=== PATIENT | female | born 1945 | race Caucasian/White ===

== ENCOUNTER 2017-04-18 09:42 | Outpatient (CLI) | payer OTHER, MEDICARE ==
--- NOTE | 2017-04-18 10:20 | DIAGNOSTIC IMAGING REPORT ---
PROCEDURE: DEXA BONE DENSITY STUDY CLINICAL INDICATION: FHX: OF OSTEOPOROSIS IN MOTHER COMPARISON: None. FINDINGS: Left radius: Bone mineral density 0.643 g/cm2, T score -0.7 normal LEFT HIP: Bone mineral density 0.798 g/cm2, T score -1.2 osteopenia LEFT FEMORAL NECK: Bone mineral density 0.724 g/cm2, T score -1.1 osteopenia FRACTURE RISK CALCULATION ( when applicable): 10-year fracture risk of a major osteoporotic fracture 14% and of a hip fracture 3.8% (T score greater or equal to -1.0 to: NORMAL) (T score from -1.1 to -2.4: OSTEOPENIA) (T score ess than or equal to -2.5: OSTEOPOROSIS) IMPRESSION: 1. Hip and femoral neck osteopenia with a 10-year of major fracture risk of 14% and a hip fracture risk of 3.8%
== END 2017-04-18 23:00 ==
LOC: XR SRH 09:42
DX: M85.89 Other specified disorders of bone density and structure, multiple sites (principal); Z82.62 Family history of osteoporosis